=== PATIENT | female | born 1965 | race Caucasian/White ===

== ENCOUNTER 2020-02-20 18:05 | Outpatient (CLI) | payer BC, SELFPAY ==
--- NOTE | ~2020-02-20 | XR_ITS ---
XR hip RT 2V w AP pelvis 02/20/2020 18:35 Indication: Right hip pain for 6 weeks. Procedure: AP pelvis and 2 views right hip Comparison: 02/26/2016 Findings: Pelvic rings are intact. Hips are symmetric. No significant degenerative change. No fractur e or traumatic malalignment. Sacral foramen are symmetric. Impression: 1: No significant bone or joint abnormality. Reviewed, dictated and finalized at location A. Impression: 1: No significant bone or joint abnormality.
== END 2020-02-20 18:06 | disposition home or self-care (01) ==
PROVIDERS: PCP Internal Medicine Geriatric Medicine; Referring Provider Chiropractor; Visit Provider Internal Medicine Geriatric Medicine
DX: M25.551 Pain in right hip (principal)
CPT/HCPCS: 73502

== ENCOUNTER 2020-10-14 08:08 | Outpatient (CLI) | payer BC, SELFPAY ==
--- NOTE | ~2020-10-14 | MM_ITS ---
EXAMINATION: MM screening sunshine BI w betzaida HISTORY: Screening mammogram TECHNIQUE: Craniocaudal and mediolateral oblique 3-D tomosynthesis images were obtained and synthetic 2-D images were generated. CAD analysis was submitted and interpreted. COMPARISON: 10/09/2019 bilateral digital screening mammogram BREAST PARENCHYMAL COMPOSITION: The breasts are heterogeneously dense, which may obscure small masses . FINDINGS: Subtle microcalcifications are noted in the posterior outer right breast on craniocaudal vi ew. It does not determine with certainty whether these are all arterial or possibly due to arterial c alcification and an additional process; diagnostic right mammogram with magnification views is recomm ended. Otherwise there is no evidence of suspicious mass, calcification, or architectural distortion to sugg est malignancy in either breast. There has been no other suspicious interval change. IMPRESSION: 1. Subtle microcalcification of uncertain significance in the posterior outer right breast 2. Diagnostic right mammogram with magnification views is recommended. BI-RADS Category 0: Incomplete: Needs additional imaging evaluation. Reviewed, dictated and finalized at location A. AR CARE TECHNOLOGIST IMPRESSION: 1. Subtle microcalcification of uncertain significance in the posterior outer r ight breast 2. Diagnostic right mammogram with magnification views is recommended. BI-RADS Category 0: Incomplete: Needs additional imaging evaluation.
== END 2020-10-14 08:09 | disposition home or self-care (01) ==
PROVIDERS: PCP Internal Medicine Geriatric Medicine; Visit Provider Student in an Organized Health Care Education/Training Program
DX: Z12.31 Encounter for screening mammogram for malignant neoplasm of breast (principal); R92.8 Other abnormal and inconclusive findings on diagnostic imaging of breast
CPT/HCPCS: 77063; 77067

== ENCOUNTER 2020-11-09 09:51 | Outpatient (CLI) | payer BC, SELFPAY ==
--- NOTE | ~2020-11-09 | MM_ITS ---
EXAMINATION: MM diagnostic mammo unilat RT HISTORY: Follow-up right breast calcifications TECHNIQUE: Additional 3-D tomosynthesis images of the right breast were performed and synthetic 2-D i mages were generated. CAD analysis was submitted and interpreted. COMPARISON: 10/14/2020 BREAST PARENCHYMAL COMPOSITION: Breast composed of scattered areas of fibroglandular density. FINDINGS: Breast composed of scattered areas of fibroglandular density. Calcifications in the outer a spect of the right breast are benign vascular calcifications. There are no suspicious masses, calcifi cations or architectural distortion to suggest malignancy. IMPRESSION: 1. No mammographic evidence for malignancy in the right breast. 2. Routine yearly screening mammogram and regular clinical breast examination are recommended. BI-RADS Category 2: Benign finding(s). Reviewed, dictated and finalized at location A. ING INSPECTOR IMPRESSION: 1. No mammographic evidence for malignancy in the right breast. 2. Routine yearly screening mammogram and regular clinical breast examination a re recommended. BI-RADS Category 2: Benign finding(s).
== END 2020-11-09 09:52 | disposition home or self-care (01) ==
PROVIDERS: PCP Internal Medicine Geriatric Medicine; Visit Provider Student in an Organized Health Care Education/Training Program
DX: R92.8 Other abnormal and inconclusive findings on diagnostic imaging of breast (principal)
CPT/HCPCS: 77065

== ENCOUNTER 2024-05-09 11:12 | Emergency (ER) | payer BC, SELFPAY ==
[2024-05-09 11:21] VITALS: BP 139/86; PULSE 76; RESP 14; TEMP 36.9; O2SAT 99
--- NOTE | 2024-05-09 12:01 | ED.GENADULT ---
HPI - General Adult General Chief complaint: Upper Respiratory Infection Stated complaint: throat/head/clogged ears Time Seen by Provider: 05/09/24 11:35 Source: patient, RN notes reviewed and old records reviewed Mode of arrival: ambulatory Limitations: no limitations History of Present Illness HPI narrative: 58-year-old female to [facility] for complaint of postnasal drainage, sore throat, bilateral ear fullness, nasal congestion for 3 days. Patient has attempted to treat at home with NyQuil and Claritin with little relief. Patient states she is supposed to be going on a trip tomorrow and wanted to insure that she did not have anything contagious. Patient denies shortness of breath, chest pain, difficulty swallowing, ear pain, pertinent medical history. Patient tolerated fluids by mouth. Respirations even and nonlabored. The patient no acute distress. Related Data Home Medications Medication Instructions Recorded Confirmed calcium carbonate (Calcium 600) 600 mg PO DAILY 12/02/19 05/09/24 multivitamin (Daily Multi-Vitamin 1 tablet PO DAILY 12/10/20 05/09/24 tablet) trazodone 50 mg tablet 50 mg PO DAILY 05/09/24 05/09/24 Allergies Allergy/AdvReac Type Severity Reaction Status Date / Time Sulfa (Sulfonamide Allergy Unknown Hives Verified 05/09/24 11:31 Antibiotics) sulfamethizole Allergy Unknown Hives Verified 05/09/24 11:31 trimethoprim Allergy Unknown Unknown Verified 05/09/24 11:31 Review of Systems Review of Systems: All systems reviewed & are unremarkable except as noted in HPI and below Constitutional: Constitutional: Reports no additional constitutional complaints Eyes: Eyes: Reports no additional eye complaints ENT: Reports system reviewed and no additional complaints, except as documented Cardiovascular: Cardiovascular: Reports no additional cardiovascular complaints, Denies chest pain and Denies dyspnea Respiratory: Respiratory: Reports no additional respiratory complaints, Denies cough and Denies dyspnea Musculoskeletal: Musculoskeletal: Reports no additional musculoskeletal complaints Neurologic: Reports system reviewed and no additional complaints, except as documented Psychiatric: Psychiatric: Reports no additional psychiatric complaints PMFSH Past Medical History Medical History (Updated 05/09/24 @ 12:05 by Marian Weber APRN) Constipation Normal colonoscopy Osteoporosis Vaginal cyst Vaginal delivery x 2 Surgical History Surgical History History of appendectomy [place] teeth removed Family History Family History Mother Family history of elevated blood lipids Family history of malignant neoplasm of breast in first degree relative Father Family history of Parkinson's disease Family history of chronic obstructive pulmonary disease Social History Social History (Updated 05/10/23 @ 15:09 by Jeannette Harley) Smoking status: Never smoker Alcohol intake: current Lack of Transportation: No Lack of Food: Never True Current Housing: I Have Housing Concerned About Future Housing: No Difficulty Paying Gas/Electric Bills: No Difficulty Paying for Meds: No Currently Unemployed: No Education: Bachelor's Degree Difficulty w/ Childcare or Family Care: No Comments At the time of my signature, I reviewed and agree with the nursing past medical, surgical, social, and family history. There is no relevant family history pertinent to the patient complaint. Exam Const: General: cooperative, healthy appearing, comfortable, no acute distress, alert and well nourished Nutritional Appearance: well nourished Orientation/consciousness: patient oriented x3 Limitations: no limitations HENMT: Head: normal to inspection Ears: external ears normal Face/Nose/Sinus: Normal external nose present, Normal nares present, normal facial exam, No erythema and No
[2024-05-09 12:14] LABS: EDSTREPNEGPOS1 Presumptive Negative
[2024-05-09 20:41] LABS: EDSTREPNEGPOS1 Presumptive Negative
== END 2024-05-09 12:10 | disposition home or self-care (01) ==
PROVIDERS: Emergency Provider Nurse Practitioner Family; PCP Internal Medicine Geriatric Medicine
DX: U07.1 COVID-19 (principal); M81.0 Age-related osteoporosis without current pathological fracture
CPT/HCPCS: 87081; 87426; 87880; 99213; G0463